=== PATIENT | male | born 1950 | race Caucasian/White ===

== ENCOUNTER 2021-07-24 18:21 | Inpatient (IN) | payer MEDICARE, OTHER, SELFPAY ==
[2021-07-24] VITALS (45 sets, daily range): BP systolic 123–162; BP diastolic 65–93; PULSE 44–79; RESP 10–32; TEMP 36.9; O2SAT 80–96
--- NOTE | 2021-07-24 | DI.CT_ITS ---
Exam(s) CT CHEST PE CTA EXAM: CT CHEST PE CTA CLINICAL HISTORY: Chest pain, PETTIT; previous pulmonary emboli. TECHNIQUE: Imaging Protocol: CT angiography of the chest was performed using pulmonary embolus farida col. Multi planar reconstructions were performed. CONTRAST MATERIAL: Intravenous: Omnipaque 350 Contrast volume: 100 cc COMPARISON: No exams were available for comparison FINDINGS: CHEST: PULMONARY ARTERIES: There is less than optimal opacification of distal pulmonary arteries. There are no central pulmonary emboli. Difficult to adequately evaluate the distal-most vessels of the pulmon sho artery tree. LUNGS: There are no confluent infiltrates nor pleural effusions.. However, there is a 4 millimeter n odule adjacent to the major fissure on the right side (series 4/image 25) similar size nodule is note d in the left lung adjacent to the major fissure. Benign-appearing increased markings are noted in t he posterior basal segment of the left lower lobe MEDIASTINUM: There is no hilar nor mediastinal adenopathy. Visualized thyroid unremarkable. CARDIAC: Heart size is upper normal. There is no pericardial effusion.Caliber of the thoracic aorta is within normal limits. Coronary artery calcification-moderate there is no significant shift of the interventricular septum. PARTIALLY VISUALIZED UPPERMOST ABDOMEN: Spleen is surgically absent. No adrenal masses. OSSEOUS: No significant osseous lesions.. IMPRESSION: 1. No central pulmonary emboli evident.. Difficult to evaluate the peripheral pulmonary arteries on this study. Cannot exclude peripheral emboli. No evidence of pulmonary infarction nor prominent rig ht heart strain. Coronary artery calcification noted. 2. Noncalcified nodules both lungs measuring 4-[address] scan in 3-6 months . Also comparison to any prior outside CT scans. 3. Absent spleen RADIATION DOSE DELIVERED: 698.81mGy.cm Total DLP DATA REPOSITORY: All CT scans at this facility are submitted to the National Radiology Data Registry (NRDR) Dose Index Registry (DIR) with the [employer] (ACR). RADIATION OPTIMIZATION: All CT scans at this facility use at least one of these dose optimization te chniques: automated exposure control; mA and/or kV adjustment per patient size (includes targeted exa ms where dose is matched to clinical indication); or iterative reconstruction.
[2021-07-24] MEDS: nitroGLYcerin in D5W 50 MG/250 ML BTL IV (19:28)
--- NOTE | 2021-07-24 20:01 | W.PM.HP.N ---
Date of service: 07/24/21 Time of Service: 20:02 Assessment and Plan Assessment and plan (1) Chest pain, rule out acute myocardial infarction: Status: Acute Assessment and plan: Symptoms for 1 month that have escalated. Initial troponin levels x2 were normal; 3rd elevated. Labs were at [facility]. They utilized a Troponin-I test. Repeat troponin now. Chest pain 1/10 currently on nitro drip. Continue. Cont Heparin drip. Given ASA and Plavix at presenting OSH ED; continue. He has been accepted at [facility] but cannot be transferred until there is an available bed. He endorses cardiac stress testing (treadmill) 3-4 months ago that was negative. He has had previous cardiac stress testing, including nuc med testing that were all negative (per pt). Concerned about potential recurrence of a pulmonary embolism. He is on Xarelto. Initial P.E./DVT was after a total knee arthroplasty. He was prescribed coumadin. He then had a recurrence of pulmonary emboli 2 years later while on coumadin and started on Xarelto at that time. CTA chest; P.E. protocol ordered. He is currently heparinized. (2) Diabetes mellitus: Status: Chronic Assessment and plan: Not on diabetic medications. Controlled carb diet. Will ordered glucose monitoring and SS correction insulin dosing. (3) Hyperlipidemia: Status: Acute Assessment and plan: Cont Rosuvastatin 5mg. (4) Morbid obesity: Status: Acute Assessment and plan: An added risk factor for CAD. He lost 100# previously. (5) Obstructive sleep apnea of adult: Status: Acute Assessment and plan: Intolerant of CPAP masks but has only been offered one type he reports. He does use 3L supplemental O2 at night. (6) COPD (chronic obstructive pulmonary disease): Status: Chronic Assessment and plan: Cont Dulera (or therapeutic sub.), Spiriva and prn xopenex. O2 saturation monitoring. (7) Pulmonary embolism: Status: Chronic Assessment and plan: H/O DVT with pulmonary embolism following knee replacement and then a subsequent recurrence while on coumadin 2 years later. Now on Xarelto which is being held while on heparin drip for concerns of ACS. CTA chest ordered. (8) History of ITP: Status: Acute Assessment and plan: Platelets 298 He is post-speenectomy. He current on meningococcal vaccine (2015), pneumococcal conjugate PCV 13 (2015), PPV23 (2000, 2015), Zoster live vaccine (2012). (9) BPH (benign prostatic hyperplasia): Status: Chronic Assessment and plan: On dutasteride. History of Present Illness History of Present Illness Chief Complaint: Chest pain and dyspnea on exertion Narrative: This is a 70 yo male with a PMH of DVT/pulmonary emboli (2 occurences), DM2, HLD, ITP, dpressive disorder, GRISELDA;not using CPAP, Asthma/COPD, BPH, Chronic low back pain. He present to [facility] with c/o upper chest discomfort intermittently for 1 month. Intensity at time of presentation described as 8/10 with onset of the episode of CP 3 hours prior to presentation. He had received some mild relief with TUMS at home. He describes a cough, increasing PETTIT. He uses 3L supplemental O2 per NC on an as needed basis; mostly at night. No palpitations, fever/chills. No abd pain, acid brash, diarrhea. No increased CP with cough or deep breath. He takes an 81mg aspirin daily and is on a BB and a statin (low dose). In the ED he received a dose of IV PPI and a GI cocktail that lessened his pain. His initial 2 Troponin-I values were negative; the 3rd was elevated. No ST elevation/abnormalities or T wave findings on EKG; +RBBB. He was administered SL nitroglycerin with good pain relief down to a 1-2/10. A nitro drip and a heparin drip were initiated. No bed availability at [facility], [facility] or [facility] per ED physician (Darin Smiley) at [facility]. [facility] did accept him for admission but it likely would not be until the next day. He is s/p Moderna Covid vaccine x 2 doses. Review of Systems All systems reviewed & are unremarkable except as noted in HPI and below PFSH Active Problem List (Updated 07/24/21 @ 21:58 by Carla Wood) Chest pain, rule out acute myocardial infarction (Acute) Diabetes mellitus (Chronic) Hyperlipidemia (Acute) Morbid obesity (Acute) Obstructive sleep apnea of adult (Acute) COPD (chronic obstructive pulmonary disease) (Chronic) Pulmonary embolism (Chronic) History of ITP (Acute) BPH (benign prostatic hyperplasia) (Chronic) Medical History (Updated 07/24/21 @ 21:58 by Carla Wood) Abrasion of foot Acute pulmonary embolism Allergic rhinitis Asthma Cholelithiasis without obstruction Chronic low back pain Chronic obstructive lung disease Constipation Depressive disorder Dermatophytosis Disorder of skin and subcutaneous tissue Edema History of urinary stone Hyperplasia of prostate Idiopathic thrombocytopenia purpura Joint pain residential (current) use of anticoagulants Mild major depression Mixed hyperlipidemia Non-toxic multinodular goiter Non-toxic uninodular goiter Pain in joint of left elbow Pneumonia Testicular hypofunction Thyroid function test abnormal Type 2 diabetes mellitus Verruca vulgaris Surgical History (Updated 07/24/21 @ 21:58 by Carla Wood) Artificial knee joint present Social History Smoking risk assessment performed?: No Meds Allergies and Home Medications Allergies Allergy/AdvReac Type Severity Reaction Status Date / Time insect venom Allergy Unverified 07/24/21 20:16 penicillin V Allergy Unverified 07/24/21 20:16 Home Medications Medication Instructions Recorded Confirmed Type allopurinol 100 mg PO DAILY 07/24/21 07/24/21 History ascorbic acid (vitamin C) [Vitamin 1 g PO DAILY 07/24/21 07/24/21 History C] benzonatate 200 mg PO TID 07/24/21 07/24/21 History dextromethorphan-guaifenesin 1 tab PO Q12H PRN 07/24/21 07/24/21 History [Mucinex DM] dutasteride 0.5 mg PO QPM 07/24/21 07/24/21 History furosemide 40 mg PO BID 07/24/21 07/24/21 History levalbuterol tartrate [Xopenex HFA] 2 inh INHALATION Q6H PRN 07/24/21 07/24/21 History metoprolol succinate 12.5 mg PO DAILY 07/24/21 07/24/21 History mometasone-formoterol [Dulera] 2 puff INHALATION Q12H 07/24/21 07/24/21 History multivitamin 1 tab PO DAILY 07/24/21 07/24/21 History mupirocin 1 applic TOPICAL PRN PRN 07/24/21 07/24/21 History nystatin 5 ml PO QID PRN 07/24/21 07/24/21 History oxygen-air delivery systems 07/24/21 07/24/21 History rivaroxaban [Xarelto] 20 mg PO DAILY 07/24/21 07/24/21 History rosuvastatin 5 mg PO DAILY 07/24/21 07/24/21 History sertraline 150 mg PO DAILY 07/24/21 07/24/21 History tiotropium bromide [Spiriva 1 puff INHALATION BID 07/24/21 07/24/21 History Respimat] Exam Const General: cooperative, no acute distress and not ill appearing Nutritional Appearance: obese Orientation: alert and oriented x3 HENMT Head: normal to inspection and normocephalic Ears: hearing grossly normal bilaterally Neck Neck: full ROM and no JVD Chest Chest: no tenderness Resp Effort & Inspection: normal respiratory effort Auscultation: clear to auscultation bilaterally Cardio Rate: regular rate Rhythm: regular rhythm Heart Sounds: S1 normal, S2 normal and other (Distant heart sounds) GI Inspection: obesity Palpation: soft and nontender Auscultation: normal bowel sounds Skin General skin exam: no rashes or lesions noted Neuro General: no focal motor deficits Cranial Nerves: facial strength normal Cognition: normal cognition Speech: speech normal Extrem General: no calf tenderness and edema Laterality: bilateral (2+) Psych Mental Status: mental status grossly normal Speech and Movement: speech and movement normal Affect: normal affect Results Labs Result diagrams: 07/25/21 05:35 07/25/21 05:35 Last Vital Signs Temp 36.9 C 07/24/21 19:30 Pulse 57 L 07/24/21 19:30 Resp 19 07/24/21 19:30 Pulse Ox 94 07/24/21 19:30
[2021-07-24 20:52] LABS: Troponin I 3.55 ng/mL (<0.06)
[2021-07-24] MEDS: Normal Saline - Diluent 50 ML VIAL IV (20:56)
[2021-07-24] MEDS: Omnipaque 350 MG/ML 100 ML BTL IJ (20:56)
[2021-07-24] MEDS: Normal Saline Flush 10 ML SYR (20:56)
[2021-07-24 21:13] LABS: NT-proBNP 318 pg/mL (<300)
--- NOTE | 2021-07-24 22:54 | DI.VRAD_ITS ---
PROCEDURE INFORMATION: Exam: CTA Chest With Contrast Exam date and time: 07/24/2021 8:03 PM Age: 70 years old Clinical indication: Other: Chest pain, toussaint; Previous pulmonary emboli TECHNIQUE: Imaging protocol: Computed tomographic angiography of the chest with contrast. 3D rendering (Not supervised by radiologist): MIP and/or 3D reconstructed images were created by the technologist. Total images: 2051 COMPARISON: No relevant prior studies available. FINDINGS: Pulmonary arteries: No large central pulmonary emboli are identified. Small peripheral pulmonary emboli are identified in the bilateral upper and lower lobes. Thrombus burden is small. There is mild dilatation of the central pulmonary arteries bilaterally suggesting an element of pulmonary arterial hypertension. No significant changes of right ventricular strain, RV to LV ratio 0.9. Aorta: Moderate aortic ectasia/tortuosity. No mediastinal hematoma. Thyroid: The visualized thyroid gland demonstrates no gross abnormality. Lungs: No acute tracheobronchial abnormalities. No gross pulmonary infiltrates or edema pattern. Patchy atelectasis or scarring in the lung bases. Pleural spaces: 6.5 mm juxtapleural nodule in the left lower lobe adjacent to the major fissure on series 6, image 271. Small juxtapleural nodules in the anterolateral left upper lobe measuring 4 mm a piece on images 238 and 247. For patients at low risk (minimal or absent history of smoking and of other known risk factors), recommend CT at 3-6 months, then consider CT at 18-24 months. For patients at high risk (history of smoking or of other known risk factors), recommend CT at 3-6 months, then CT at 18-24 months. (Anirudh et al., Fleischner Society, 2017). No pleural effusion. No pneumothorax. Heart: Heart size normal. Moderate coronary artery calcification. No pericardial effusion. Mediastinal space: The esophagus is largely contracted but demonstrates no gross abnormality. Lymph nodes: No supraclavicular or axillary adenopathy. No mediastinal adenopathy. Mildly enlarged right hilar node, nonspecific. Pancreas: Moderate pancreatic atrophy without acute abnormality. No pancreatic ductal dilatation. Spleen: Splenectomy. Kidneys and ureters: Mild left renal cortical scarring. Bones/joints: No acute osseous abnormalities are identified. Osteopenia and moderate thoracic spondylosis. Soft tissues: The soft tissues of the chest wall demonstrate no acute abnormality. IMPRESSION: 1. Small bilateral peripheral pulmonary emboli are identified. No large central emboli. Thrombus burden is small. There are mild changes of pulmonary arterial hypertension but no evidence of right ventricular strain. 2. Mildly enlarged right hilar lymph node, nonspecific. 3. Moderate coronary artery calcification. 4. Small noncalcified pulmonary nodules in the left lung measuring up to 6.5 mm. Please see follow-up recommendations above. 5. Additional nonemergent findings detailed above. 6. These findings initiated a critical results reporting process. An addendum will be issued at the time of clinician notification. Dictated and Authenticated by: Robert Augustin MD. Ordering:SUSANA Barbosa MD
--- NOTE | 2021-07-24 23:54 | DI.VRAD_ITS ---
Addendum created by Robert Augustin MD on 07/24/2021 11:53:21 PM EST: Addendum: THIS REPORT CONTAINS FINDINGS THAT MAY BE CRITICAL TO PATIENT CARE. The findings were verbally communicated via telephone conference with Familia Valles at 11:53 PM EST on 07/24/2021. The findings were acknowledged and understood. Initial report created on 07/24/2021 10:53:54 PM EST: PROCEDURE INFORMATION: Exam: CTA Chest With Contrast Exam date and time: 07/24/2021 8:03 PM Age: 70 years old Clinical indication: Other: Chest pain, toussaint; Previous pulmonary emboli TECHNIQUE: Imaging protocol: Computed tomographic angiography of the chest with contrast. 3D rendering (Not supervised by radiologist): MIP and/or 3D reconstructed images were created by the technologist. Total images: 2051 COMPARISON: No relevant prior studies available. FINDINGS: Pulmonary arteries: No large central pulmonary emboli are identified. Small peripheral pulmonary emboli are identified in the bilateral upper and lower lobes. Thrombus burden is small. There is mild dilatation of the central pulmonary arteries bilaterally suggesting an element of pulmonary arterial hypertension. No significant changes of right ventricular strain, RV to LV ratio 0.9. Aorta: Moderate aortic ectasia/tortuosity. No mediastinal hematoma. Thyroid: The visualized thyroid gland demonstrates no gross abnormality. Lungs: No acute tracheobronchial abnormalities. No gross pulmonary infiltrates or edema pattern. Patchy atelectasis or scarring in the lung bases. Pleural spaces: 6.5 mm juxtapleural nodule in the left lower lobe adjacent to the major fissure on series 6, image 271. Small juxtapleural nodules in the anterolateral left upper lobe measuring 4 mm a piece on images 238 and 247. For patients at low risk (minimal or absent history of smoking and of other known risk factors), recommend CT at 3-6 months, then consider CT at 18-24 months. For patients at high risk (history of smoking or of other known risk factors), recommend CT at 3-6 months, then CT at 18-24 months. (Anirudh et al., Fleischner Society, 2017). No pleural effusion. No pneumothorax. Heart: Heart size normal. Moderate coronary artery calcification. No pericardial effusion. Mediastinal space: The esophagus is largely contracted but demonstrates no gross abnormality. Lymph nodes: No supraclavicular or axillary adenopathy. No mediastinal adenopathy. Mildly enlarged right hilar node, nonspecific. Pancreas: Moderate pancreatic atrophy without acute abnormality. No pancreatic ductal dilatation. Spleen: Splenectomy. Kidneys and ureters: Mild left renal cortical scarring. Bones/joints: No acute osseous abnormalities are identified. Osteopenia and moderate thoracic spondylosis. Soft tissues: The soft tissues of the chest wall demonstrate no acute abnormality. IMPRESSION: 1. Small bilateral peripheral pulmonary emboli are identified. No large central emboli. Thrombus burden is small. There are mild changes of pulmonary arterial hypertension but no evidence of right ventricular strain. 2. Mildly enlarged right hilar lymph node, nonspecific. 3. Moderate coronary artery calcification. 4. Small noncalcified pulmonary nodules in the left lung measuring up to 6.5 mm. Please see follow-up recommendations above. 5. Additional nonemergent findings detailed above. 6. These findings initiated a critical results reporting process. An addendum will be issued at the time of clinician notification. Dictated and Authenticated by: Robert Augustin MD. Ordering:SUSANA Barbosa MD
[2021-07-24 23:55] LABS: Troponin I 5.84 ng/mL (<0.06)
[2021-07-25] VITALS (82 sets, daily range): BP systolic 101–137; BP diastolic 52–86; PULSE 43–69; RESP 13–21; TEMP 36.5–36.8; O2SAT 89–96
--- NOTE | 2021-07-25 | DI.US_ITS ---
APPROVED REPORT EXAM: Comprehensive 2D, Doppler, and color-flow Echocardiogram Patient Location: In-Patient Room/Bed: IIZ078 Inside Channel Account Manager: Mckenzie Dowd RDCS (AE) Indications: s/p new NSTEMI Other Information Study Quality: Fair. Technically limited study due to body habitus, inability to position patient. Conclusion Normal left ventricular wall thickness and chamber size. Estimated ejection fraction is 60%. There were no apparent wall motion abnormalities Grossly normal right ventricular size and function Both atria are normal in size The aortic valve is trileaflet and sclerotic without stenosis or regurgitation Mildly thickened mitral leaflets with trace regurgitation Normal tricuspid valve with trace regurgitation. Estimated right ventricular systolic pressure was 2 5 mmHg Dilated ascending aorta measuring 4.04 cm Wall motion Left Ventricle The left ventricle is normal size. The left ventricular systolic function is normal. The left ventric ular ejection fraction is within the normal range. There is normal left ventricular wall thickness. T here is normal LV segmental wall motion. There is no ventricular septal defect visualized. LVEF is 60 %. Right Ventricle Right ventricle is grossly normal in size. Right ventricular systolic function is grossly normal. The RVSP is 25.0mmHg. Atria The left atrium size is normal. The right atrium size is normal. The interatrial septum is intact wit h no evidence for an atrial septal defect. Aortic Valve The Aortic valve is sclerotic. Aortic valve is trileaflet. There is no aortic valvular stenosis. No a ortic regurgitation is present. Mitral Valve Mitral valve leaflets are mildly thickened. No evidence of mitral valve stenosis. Trace mitral regurg itation. Tricuspid Valve The tricuspid valve is normal in structure. There is no tricuspid valve stenosis. Trace tricuspid reg urgitation. Pulmonic Valve The pulmonary valve is normal in structure. There is no pulmonic valvular stenosis. Trivial pulmonic regurgitation. Great Vessels The aortic root is normal in size. The ascending aorta is moderately dilated.4.04 cm Aortic arch is n ot well visualized. IVC is normal in size and collapses >50% with inspiration. Pericardium There is no pericardial effusion. 2D Dimensions IVSD d PLAX 1.04 cm M: 0.6-1.2 LV Vol A2C d MOD 215.0 mL LVPW d PLAX 1.04 cm M: 0.6 - 1.2 LV Vol A4C d MOD 190.7 mL LVID d PLAX 5.75 cm M: 4.2 - 5.8 LA vol/ BSA A4C s A-L 46.5 mL/m2 LVDs 4.00 cm M: 2.5 - 4.0 LA Area A4C s MOD 31.82 cm2 Ao Root d 3.14 cm M: 3.1 - 3.7 LV EF A4C MOD 56.9 % RA Area A4C 17.66 cm2 LV EF A2C MOD 57.4 % RA Vol/ BSA A4C s A-L 19.8 mL/m2 LV EF Biplane MOD 56.7 % Ao Asc Diam d 4.04 cm M: 2.6 - 3.4 SV 115.25 mL LV EF Teichholz 56.9 % SV Index 44.17 mL/m2 LVEF (Wood's) 56.73 % M: 52 - 72 LV Volume 140.52 mL M: 62 - 150 LV Volume Index 53.83 mL/m2 M: 34 - 74 LV Vol Biplane MOD 203.2 mL FS 30.25 % M-Mode TAPSE 2.23 cm (M/F) >1.7 LV Diastology MV E' medial 0.108 (>0.07 m/s) E/A Ratio 1.0 LV E/e MED 5.45 (<14) MV E Vmax 0.59 (0.4-1.3 m/s) MV E' lateral 0.081 (>0.1 m/s) MV A Vmax 0.60 (0.4-1.3 m/s) LV E/e LAT 7.25 (<14) MV E/A Ratio 0.98 MV E/E' medial 5.48 MV E/E' lateral 7.26 Aortic Valve LVOT Area 3.18 cm2 AoV Area Vmax 1.80 cm2 LVOT Vmax 0.94 m/s AoV Area/ BSA (Vmax) 0.69 cm2/m2 LVOT Mean Jordon. 0.55 m/s MASSIMO Mean Jordon. 1.39 cm2 LVOT Peak Grad 3.5 mmHg MASSIMO Mean Jordon. Index 0.53 cm2/m2 LVOT Mean Grad 1.5 mmHg LVOT VTI 0.218 m LVOT Diam s 2.00 cm AoV Vmax 1.66 m/s Velocity Ratio 0.56 AoV Mean Jordon. 1.26 m/s AoV Peak Grad 11.0 mmHg LVOT SV 69.36 mL AoV Mean Grad 6.9 mmHg AoV VTI 0.366 m AoV Area VTI 1.89 cm2 AoV Area/ BSA (VTI) 0.73 cm/m2 Mitral Valve MV DT 276 (160-240 msec) MV PHT 80 msec MV Area PHT 2.75 cm2 MV VTI 0.295 m MV Area VTI 2.35 (4.0-6.0 cm2) Pulmonary Valve PV Vmax 1.02 (0.5-1.5 m/s) RVOT Peak Gr. 2.15 mmHg PV Peak Grad 4.2 mmHg RVOT Mean Gr. 0.85 mmHg PV Mean Grad 2.4 mmHg RVOT VTI 0.155 m PV VTI 0.194 m RVOT Vmax 0.73 m/s Tricuspid Valve TR Peak Grad 22.0 mmHg TR Vmax 2.35 m/s RA Pressure 3.00 mmHg RVSP (TR) 25.0 mmHg
[2021-07-25] MEDS: Furosemide 40 MG TAB PO ×2 (00:41→08:24)
--- NOTE | 2021-07-25 05:45 | RT.EKG_ITS ---
APPROVED REPORT Exam: Resting ECG Reason for Exam: NSTEMI Patient Location: I HR:58 bpm ECG Measurements Heart Rate 58 AXIS TX 180 P 31 QRSd 160 QRS -46 QT 474 T -11 QTc 468 Conclusion Sinus bradycardia...rate< 60 RBBB and LAFB...QRSd >120mS, axis(-40,240) Probable left ventricular hypertrophy...(RaVL+SV3)xQRSd >280
--- NOTE | 2021-07-25 06:54 | NUR.NOTE ---
EKG donme as ordered.
[2021-07-25 07:10] LABS: Abs Immature Grans 0.05 10^3/uL (0.0-0.06); Absolute Basophil Count 0.04 10^3/uL (0.0-0.2); Absolute Eosinophil Count 0.37 10^3/uL (0.0-0.7); Absolute Lymphocyte Count 2.24 10^3/uL (1.2-3.4); Absolute Monocyte Count 1.01 10^3/uL (0.1-0.8); Absolute Neutrophil Count 6.26 10^3/uL (1.2-6.7); Basophils % 0.4; Eosinophils % 3.7; HCT 40.9 % (40.0-50.0); HGB 13.2 g/dL (13.5-17.5); Immature Grans % 0.5; Lymphocytes % 22.5; MCH 29.5 pg (27.0-33.0); MCHC 32.3 % (32.0-36.0); MCV 91.3 fL (80-95); MPV 10.6 fL (8.0-11.0); Monocytes % 10.1; Neutrophils % 62.8; Nucleated RBC 0 %; Platelet Count 291 10^3/uL (130-400); RBC 4.48 10^6/uL (4.36-5.78); RDW 15.2 % (11.8-14.1); RDW-SD 50.4 fL; WBC 9.97 10^3/uL (4.4-10.8)
[2021-07-25 07:33] LABS: PTT Activated 46.1 sec (21.0-27.5)
[2021-07-25 07:34] LABS: ALT 22 U/L (16-63); AST 37 U/L (15-37); Albumin 2.9 g/dL (3.4-5.0); Alkaline Phosphatase 83 U/L (46-116); Anion Gap 7.1 mmol/L (3-11); BUN 19 mg/dL (7-18); Bilirubin, Total 0.6 mg/dL (0.2-1.0); CO2 29.9 mmol/L (21.0-32.0); Calcium 9.6 mg/dL (8.5-10.1); Chloride 109 mmol/L (98-107); Glucose 149 mg/dL (74-106); Magnesium 2.1 mg/dL (1.8-2.4); Potassium 4.1 mmol/L (3.5-5.1); Sodium 146 mmol/L (136-145); Total Protein 6.6 g/dL (6.4-8.2)
[2021-07-25 07:38] LABS: Troponin I 8.22 ng/mL (<0.06)
--- NOTE | 2021-07-25 08:20 | INITIAL_ITS ---
- If Service Date Differs Date of service: 07/25/21 Time of Service: 08:20 Care Management Initial Assess REASON FOR HOSPITALIZATION:: chest pain, PE PAST MEDICAL HISTORY/PAST SURGICAL HISTORY:: Active Problem List (Updated 07/24/21 @ 21:58 by Carla Wood). Chest pain, rule out acute myocardial infarction (Acute). Diabetes mellitus (Chronic). Hyperlipidemia (Acute). Morbid obesity (Acute). Obstructive sleep apnea of adult (Acute). COPD (chronic obstructive pulmonary disease) (Chronic). Pulmonary embolism (Chronic). History of ITP (Acute). BPH (benign prostatic hyperplasia) (Chronic). Medical History (Updated 07/24/21 @ 21:58 by Carla Wood). Abrasion of foot. Acute pulmonary embolism. Allergic rhinitis. Asthma. Cholelithiasis without obstruction. Chronic low back pain. Chronic obstructive lung disease. Constipation. Depressive disorder. Dermatophytosis. Disorder of skin and subcutaneous tissue. Edema. History of urinary stone. Hyperplasia of prostate. Idiopathic thrombocytopenia purpura. Joint pain. parts counterman (current) use of anticoagulants. Mild major depression. Mixed hyperlipidemia. Non-toxic multinodular goiter. Non-toxic uninodular goiter. Pain in joint of left elbow. Pneumonia. Testicular hypofunction. Thyroid function test abnormal. Type 2 diabetes mellitus. Verruca vulgaris. Surgical History (Updated 07/24/21 @ 21:58 by Carla Wood). Artificial knee joint present PREVIOUS FUNCTIONAL STATUS/SOCIAL/FAMILY SUPPORTS:: Dipesh lives in a single family home in [place], [place] with his Karina. They have 2 children - a son and a daughter and 8 grandchildren. Dipesh and Karina also have 5 great grandchildren. All of his family lives in the area and he descibes them as close and supportive. Dipesh uses a cane for ambulation as he had his ankle replaced fairly recently. He receives no community services and is independent at baseline. 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 CURRENT FUNCTIONAL STATUS:: Dipesh was sitting up in bed when CM met with him. He was pleasant and engaged easily with CM. Dipesh denied having chest pain at this time and his vital signs appeared stable. When he was first admitted he was hypertensive but his blood pressures have been in the 120's systolic all morning. Per provider, Dipesh has been accepted in transfer to [facility]; he is waiting for a bed. ADVANCE DIRECTIVES:: none on file and is not interested Has patient been provided with info about the portal/API?: Yes Did the patient sign up for the portal?: No CODE STATUS:: Full Code INSURANCE COVERAGE / FINANCIAL ISSUES:: Medicare. [employer] CURRENT HOME/COMMUNITY SERVICES/EQUIPMENT:: Dipesh uses a cane PRIMARY CARE PHYSICIAN:: Darin Sla POTENTIAL DISCHARGE NEEDS:: Follow up with PCP and plan of care PATIENT/FAMILY EDUCATION NEEDS:: When ready for discharge educational needs will include a review of discharge instructions,activity, medications, limitations, follow up plan, Ask Me Three ANTICIPATED BARRIERS TO DISCHARGE:: waiting for a bed at [facility] TRANSPORTATION:: via private vehicle with PLAN:: Dipesh will likely be transferred to [facility] as soon as a bed becomes available. He will transport via EMS coordinated by nursing supervisor cab.
[2021-07-25] MEDS: Multivitamin TAB 1 TAB PO (08:23)
[2021-07-25] MEDS: Aspirin 81 MG CHEW PO (08:23)
[2021-07-25] MEDS: Clopidogrel 75 MG TAB PO (08:23)
[2021-07-25] MEDS: Ascorbic Acid 500 MG TAB 1000 MG PO (08:23)
[2021-07-25] MEDS: Allopurinol 100 MG TAB PO (08:23)
[2021-07-25] MEDS: Sertraline 50 MG TAB 150 MG PO (08:24)
[2021-07-25] MEDS: Rosuvastatin 5 MG TAB PO (08:24)
[2021-07-25] MEDS: Metoprolol CR 25 MG TABCR 12.5 MG PO (08:24)
[2021-07-25] MEDS: Insulin Aspart 300 UNITS/3 ML PEN SC (08:40)
[2021-07-25] MEDS: Budesonide/Formoterol 160/4.5 6 GM 60 PUFF INH IH (08:51)
--- NOTE | 2021-07-25 09:50 | W.PM.PROGNOT ---
Date of Service Date of service: 07/25/21 Time of Service: 09:50 Assessment and Plan Assessment and plan (1) NSTEMI (non-ST elevated myocardial infarction): Status: Acute Assessment and plan: Patient clearly had an NSTEMI based on his elevated troponins and symptoms of chest pain which resolved with nitroglycerin. EKG demonstrates sinus rhythm with a right bundle branch block and left anterior fascicular block. Is unclear as to how old this is but it is unchanged from his EKGs at [facility] last night. Continue heparin dual antiplatelet therapy statin therapy as well as nitroglycerin IV. As well as his beta-aretha. Seems to have some mild congestive failure as evidenced by bilateral rales and peripheral edema. We will give him low-dose Lasix. Transfer to [facility] when bed becomes available. 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 Currently patient is being maintained on heparin drip for his NSTEMI. Qualifiers: Chronicity: chronic Acute cor pulmonale presence: without acute cor pulmonale Pulmonary embolism type: unspecified Qualified Code(s): I27.82 - Chronic pulmonary embolism (3) Diabetes mellitus: Status: Chronic Assessment and plan: Patient previously been on Lantus but due to significant weight loss of over 100 pounds which was a conscientious effort to get his weight down and control his blood sugars he has been able to get off of insulin and his A1c has been hanging around 6%. Here in the hospital monitor his blood sugars and do sliding scale coverage with NovoLog. Qualifiers: Diabetes mellitus type: type 2 Diabetes mellitus buttermaker helper insulin use: without detention use Diabetes mellitus complication status: without complication Qualified Code(s): E11.9 - Type 2 diabetes mellitus without complications (4) COPD (chronic obstructive pulmonary disease): Status: Chronic Assessment and plan: Xopenex inhalers as needed. Continue Symbicort and Spiriva Qualifiers: COPD type: unspecified COPD Qualified Code(s): J44.9 - Chronic obstructive pulmonary disease, unspecified (5) Hyperlipidemia: Status: Acute Assessment and plan: Continue Crestor Qualifiers: Hyperlipidemia type: unspecified Qualified Code(s): E78.5 - Hyperlipidemia, unspecified (6) BPH (benign prostatic hyperplasia): Status: Chronic Qualifiers: Lower urinary tract symptom presence: symptoms absent Qualified Code(s): N40.0 - Benign prostatic hyperplasia without lower urinary tract symptoms Subjective Subjective Interval history since last seen: Patient is 70 yr old male w/ PMH of DM, HTN, HLD, COPD but no prior hx of CAD nor CHF who presented to [facility] in [place] w/ acute onset of CP: chest tightnness, burning which he initially thought was heart burn but did not respond to Tums. He had his drive him over to the emergency department at [facility] where he was found to have NSTEMI. EKG demonstrated sinus bradycardia rate 53 bpm with a right bundle branch block and a left anterior fascicular block with rare PVCs. Serial EKG showed no change. He also has borderline ECG criteria for LVH. His SARS-CoV-2 swab at [facility] was negative. His initial troponin I was elevated 57.4 there are normal range goes up to 60.4 pg/mL. His repeat troponin went up to 99.9 which is well above the upper limit normal. His chest pain resolved with sublingual nitroglycerin and then he was started on nitroglycerin drip and heparin drip and was given dual antiplatelet therapy with aspirin Plavix. Because [facility] could not transfer him to tertiary care center and they did not have ICU capacity patient was transferred down to [facility] pending acceptance to a tertiary care center. This morning His troponins are still trending upward. Last night on arrival his troponin I per our labs was 3.55 ng/mL which is well above the upper limit of normal of 0.06. Repeat troponin this morning is 8.22. Patient is currently pain-free he remains on nitroglycerin drip at 10 mcg/min and a heparin drip at 1250 units/h. Patient has been accepted for transfer to [facility] pending bed availability this morning. Patient has had small amount of bleeding from his penis since has been on the heparin drip. Latest activated partial thromboplastin time is 46.1. BMP shows normal renal function with BUN of 19 creatinine 1.0 LFTs are normal electrolytes are normal. proBNP is elevated at 1276 this morning. Patient did have some chest congestion with bilateral basilar rales. He has been having increasing exertional dyspnea at home prior to admission and bilateral leg and pedal edema. Exam Narrative Exam Narrative: Morbidly obese male who is lying in bed semisolid position in no acute respiratory distress wearing oxygen. SPO2 was 90%. Heart rate 54 sinus bradycardia. BP is 125/84. Neck is obese difficult to discern a JVD Lungs with bibasilar rales and some end expiratory wheezes no rhonchi Heart is regular bradycardic no appreciable murmur rub or gallop. Abdomen is obese soft nontender Lower legs with 2+ pitting edema of his feet ankles and pretibial surfaces up to his knees. Objective Last Vital Signs Temp 36.5 C 07/25/21 04:35 Pulse 48 L 07/25/21 09:01 Resp 17 07/25/21 09:01 BP 120/78 07/25/21 09:01 Pulse Ox 93 07/25/21 09:01 Laboratory Results - last 24 hr 07/24/21 07/24/21 07/24/21 20:15 20:15 23:20 WBC RBC Hgb Hct MCV MCH MCHC RDW Plt Count MPV Immature Gran % Neutrophils % Lymphocytes % Monocytes % Eosinophils % Basophils % Nucleated RBC % Absolute Neutrophils Absolute Lymphocytes Absolute Monocytes Absolute Eosinophils Absolute Basophils APTT 33.0 H Sodium Potassium Chloride Carbon Dioxide Anion Gap BUN Creatinine Estimated GFR/1.73 m2 Glucose Calcium Magnesium Total Bilirubin AST ALT Alkaline Phosphatase Troponin I 3.55 H* NT-Pro-B Natriuret Pep 318 H Total Protein Albumin 07/24/21 07/25/21 07/25/21 23:20 06:20 06:20 WBC RBC Hgb Hct MCV MCH MCHC RDW Plt Count MPV Immature Gran % Neutrophils % Lymphocytes % Monocytes % Eosinophils % Basophils % Nucleated RBC % Absolute Neutrophils Absolute Lymphocytes Absolute Monocytes Absolute Eosinophils Absolute Basophils APTT Sodium 146 H Potassium 4.1 Chloride 109 H Carbon Dioxide 29.9 Anion Gap 7.1 BUN 19 H Creatinine 1.0 Estimated GFR/1.73 m2 >= 60.00 Glucose 149 H Calcium 9.6 Magnesium 2.1 Total Bilirubin 0.6 AST 37 ALT 22 Alkaline Phosphatase 83 Troponin I 5.84 H* 8.22 H* NT-Pro-B Natriuret Pep Total Protein 6.6 Albumin 2.9 L 07/25/21 07/25/21 06:20 06:20 WBC 9.97 RBC 4.48 Hgb 13.2 L Hct 40.9 MCV 91.3 MCH 29.5 MCHC 32.3 RDW 15.2 H Plt Count 291 MPV 10.6 Immature Gran % 0.5 Neutrophils % 62.8 Lymphocytes % 22.5 Monocytes % 10.1 Eosinophils % 3.7 Basophils % 0.4 Nucleated RBC % 0 Absolute Neutrophils 6.26 Absolute Lymphocytes 2.24 Absolute Monocytes 1.01 H Absolute Eosinophils 0.37 Absolute Basophils 0.04 APTT 46.1 H D Sodium Potassium Chloride Carbon Dioxide Anion Gap BUN Creatinine Estimated GFR/1.73 m2 Glucose Calcium Magnesium Total Bilirubin AST ALT Alkaline Phosphatase Troponin I NT-Pro-B Natriuret Pep Total Protein Albumin Reviewed Pertinent PMH: Yes Objective Narrative Objective Narrative: Krhuk-ff-ifox ultrasound of his heart was performed. LV function appears grossly normal on parasternal long and short axis view images with endpoint septal separation of 8 mm. Wood biplane ejection fraction however was 44% which is mildly impaired. However this calculation is probably not accurate as I could not get good endocardial definition in both the apical two chamber view. I did not see any regional wall motion abnormalities on the parasternal short axis and long axis view. A formal echocardiogram will be performed.
[2021-07-25] MEDS: Tiotropium Bromide-Respimat 10 PUFF INH IH (10:02)
[2021-07-25 10:54] LABS: NT-proBNP 1272 pg/mL (<300)
[2021-07-25 11:00] LABS: Troponin I 7.47 ng/mL (<0.06)
[2021-07-25] MEDS: Furosemide 20 MG/2 ML VIAL IVP (11:09)
[2021-07-25] MEDS: Normal Saline Flush 10 ML SYR (11:10)
--- NOTE | 2021-07-25 16:09 | W.PM.DS.N ---
DS: Diagnosis Discharge Diagnosis (1) NSTEMI (non-ST elevated myocardial infarction): Status: Acute Asessment and Plan: Patient sustained non-ST elevation myocardial infarction was treated with heparin drip, nitroglycerin drip, dual antiplatelet therapy and remained pain-free throughout his hospital stay at [facility]. He had some mild congestive failure and was treated with IV Lasix. Patient was transferred [facility] for further tertiary care including cardiology consultation and cardiac catheterization for possible PCI (2) Pulmonary embolism: Status: Chronic Asessment and Plan: Chronically anticoagulated with Xarelto. CT of the chest performed on admission [facility] showed no central pulmonary emboli. Radiologist could not discern whether there was evidence for small peripheral emboli. (3) Diabetes mellitus: Status: Chronic (4) COPD (chronic obstructive pulmonary disease): Status: Chronic (5) Hyperlipidemia: Status: Acute (6) BPH (benign prostatic hyperplasia): Status: Chronic (7) Lung nodules: Status: Acute Asessment and Plan: Bilateral pulmonary nodules measuring 4 mm in size needs repeat follow-up CT scan in 3 to 6 months to assess stability Discharge Plan Disposition Patient Disposition: [facility] Condition: Serious Discharge Details Reason For Visit: NSTEMI Admit Date/Time: 07/24/21 18:21 Admit Provider: Familia Valles Attending Provider: Familia Valles Primary Care Provider: Darin Sal Hospital Course Hospital Course: See admission H&P for details. In summary this 70-year-old white male with a history of pulmonary emboli is chronically anticoagulated with Xarelto and has a history of hyperlipidemia hypertension COPD developed new onset chest pain at rest. He presented to the emergency department at [facility] in [facility] where he was diagnosed with an NSTEMI. EKG showed right bundle branch block with left anterior fascicular block. His troponin I level was elevated 57.4 with a normal range the goes up to 60.4 pg/mL. Second set of troponin at [facility] was elevated at 99.9. Patient was treated with sublingual nitroglycerin which resolved his chest pain. He was started on dual antiplatelet therapy with aspirin Plavix. [facility] had no capacity for ICU beds and there were no tertiary care centers available to accept the patient he was transferred to [facility] to the intensive care unit. He was sent on a heparin and nitroglycerin drip and was pain-free. His SARS-CoV-2 swab at [facility] was negative. Troponin levels were monitored here at [facility] initially was 3.55 ng/mL which is well above the upper limit normal of 0.06. Later this vivi to 5.84 on the morning of transfer to [facility] it was 8.22 and 7.47. His proBNP was elevated at 1272. Patient was given Lasix with good diuresis. Patient remained free of any chest pain throughout the rest of his hospitalization at [facility]. Imaging includes CT scan of his chest which showed no central pulmonary emboli there was no evidence of right heart strain and no pulmonary infarct of the radiologist it was difficult to evaluate for peripheral emboli. He has some noncalcified nodules in both lungs measuring 4 to 5 mm for which repeat CT scan of the chest in 3 to 6 months is recommended. 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 Echocardiogram was performed showed normal left ventricular wall thickness and size with an estimate ejection fraction of 60% with no wall motion abnormalities. Right ventricular size and function was grossly normal. There is a dilated ascending aorta measuring 4.04 cm. He had no significant valvular heart disease. Patient was transferred to [facility] in the afternoon of 07/25/2021 in serious but stable condition. He remains on heparin drip and nitroglycerin drip and is pain-free Home Meds and New Rx's Prescriptions: No Action allopurinol 100 mg Tablet 100 mg PO DAILY RF: 0 multivitamin Tablet 1 tab PO DAILY RF: 0 furosemide 40 mg Tablet 40 mg PO BID RF: 0 nystatin 100,000 unit/mL Suspension 5 ml PO QID PRN (Reason: thrush) RF: 0 ascorbic acid (vitamin C) [Vitamin C] 1,000 mg Tablet 1 g PO DAILY RF: 0 benzonatate 200 mg Capsule 200 mg PO TID RF: 0 sertraline 100 mg Tablet 150 mg PO DAILY RF: 0 dextromethorphan-guaifenesin [Mucinex DM] 60-1,200 mg Tablet Extended Release 12 Hr 1 tab PO Q12H PRN (Reason: Cough) RF: 0 mupirocin 2 % Ointment 1 applic TOPICAL PRN PRNRF: 0 metoprolol succinate 25 mg Tablet Extended Release 24 Hr 12.5 mg PO DAILY RF: 0 (DME) oxygen-air delivery systems Device MISCELLANEOUS RF: 0 dutasteride 0.5 mg Capsule 0.5 mg PO QPM RF: 0 rosuvastatin 5 mg Tablet 5 mg PO DAILY RF: 0 levalbuterol tartrate [Xopenex HFA] 45 mcg/actuation Hfa Aerosol Inhaler 2 inh INHALATION Q6H PRN (Reason: Wheezing) RF: 0 Dulera 200-5 mcg/actuation Hfa Aerosol Inhaler 2 puff INHALATION Q12H RF: 0 Xarelto 20 mg Tablet 20 mg PO DAILY RF: 0 Spiriva Respimat 2.5 mcg/actuation Mist 1 puff INHALATION BID RF: 0 Discharge Instructions Activity:: Bedrest Equipment/Supplies:: No Equipment Needed Diet:: Carb Counting Discharge Orders Discharge Orders: Discharge Order (Routine); Ordered 07/25/21 Ordered By: Tai Trejo DS: Summary Time Spent with Patient providing and/or coordinating discharge services: Less than 30 minutes Status at Discharge Functional status at discharge: independent ambulation Overall status at discharge: patient is not back to baseline Mental Status: mental status grossly normal Speech and Movement: speech and movement normal Mood: congruent mood Affect: normal affect Exam Narrative Exam Narrative: Morbidly obese male who is lying in bed semisolid position in no acute respiratory distress wearing oxygen. SPO2 was 90%. Heart rate 54 sinus bradycardia. BP is 125/84. Neck is obese difficult to discern a JVD Lungs with bibasilar rales and some end expiratory wheezes no rhonchi Heart is regular bradycardic no appreciable murmur rub or gallop. Abdomen is obese soft nontender Lower legs with 2+ pitting edema of his feet ankles and pretibial surfaces up to his knees. Psych Mental Status: mental status grossly normal Speech and Movement: speech and movement normal Mood: congruent mood Affect: normal affect DS: Data Vitals/I&O Vitals and I&O: Vital Signs Temperature 36.6 C 07/25/21 12:00 Temperature Source Temporal Artery Scan 07/25/21 12:00 Pulse 48 L 07/25/21 14:01 Pulse 50 L 07/25/21 14:01 Respiratory Rate 17 07/25/21 14:01 Respiratory Effort Non-Labored 07/25/21 14:52 Respiratory Depth Normal 07/25/21 14:52 Respiratory Pattern Normal 07/25/21 14:52 Blood Pressure 123/61 07/25/21 14:01 Blood Pressure Mean 76 07/25/21 14:01 Blood Pressure Position Supine 07/25/21 14:52 Pulse Oximetry 92 07/25/21 14:01 Oxygen Delivery Method Nasal Cannula 07/25/21 14:52 Oxygen Flow Rate 3 07/25/21 14:52 Pain Level 0 07/25/21 14:52 Intake & Output 07/24/21 07/25/21 07/25/21 23:59 11:59 23:59 Intake Total 10.8 / 56.133 242.208 / 242.208 Output Total 390 / 390 725 / 2650 1925 / 2650 Balance -379.2 / -333.867 -482.792 / -2407.792 -1925 / -2407.792 Weight 150 kg 150 kg Intake: IV 10.8 / 56.133 142.208 / 142.208 Oral 100 / 100 Output: Urine 390 / 390 725 / 2650 1925 / 2650 Other: Urine Color Light Dayna Yellow Pale Yellow Urine Appearance Clear Clear Clear Urine Odor Strong Normal Normal Comment needs assistance with urinal. Patient voids in urinal with assisstance. Patient voids in urinal with assistance. Stool Size Small Stool Characteristics Soft Voiding Methods Urinal Bedside Commode Urinal Data Completed and Pending Labs on day of discharge: Labs from last 24 hours 07/25/21 07/25/21 07/25/21 10:17 06:20 06:20 WBC 9.97 RBC 4.48 Hgb 13.2 L Hct 40.9 MCV 91.3 MCH 29.5 MCHC 32.3 RDW 15.2 H Plt Count 291 MPV 10.6 Immature Gran % 0.5 Neutrophils % 62.8 Lymphocytes % 22.5 Monocytes % 10.1 Eosinophils % 3.7 Basophils % 0.4 Nucleated RBC % 0 Absolute Neutrophils 6.26 Absolute Lymphocytes 2.24 Absolute Monocytes 1.01 H Absolute Eosinophils 0.37 Absolute Basophils 0.04 APTT 46.1 H D Sodium Potassium Chloride Carbon Dioxide Anion Gap BUN Creatinine Estimated GFR/1.73 m2 Glucose Calcium Magnesium Total Bilirubin AST ALT Alkaline Phosphatase Troponin I 7.47 H* NT-Pro-B Natriuret Pep 1272 H Total Protein Albumin 07/25/21 07/25/21 07/24/21 06:20 06:20 23:20 WBC RBC Hgb Hct MCV MCH MCHC RDW Plt Count MPV Immature Gran % Neutrophils % Lymphocytes % Monocytes % Eosinophils % Basophils % Nucleated RBC % Absolute Neutrophils Absolute Lymphocytes Absolute Monocytes Absolute Eosinophils Absolute Basophils APTT Sodium 146 H Potassium 4.1 Chloride 109 H Carbon Dioxide 29.9 Anion Gap 7.1 BUN 19 H Creatinine 1.0 Estimated GFR/1.73 m2 >= 60.00 Glucose 149 H Calcium 9.6 Magnesium 2.1 Total Bilirubin 0.6 AST 37 ALT 22 Alkaline Phosphatase 83 Troponin I 8.22 H* 5.84 H* NT-Pro-B Natriuret Pep Total Protein 6.6 Albumin 2.9 L 07/24/21 07/24/21 07/24/21 23:20 20:15 20:15 WBC RBC Hgb Hct MCV MCH MCHC RDW Plt Count MPV Immature Gran % Neutrophils % Lymphocytes % Monocytes % Eosinophils % Basophils % Nucleated RBC % Absolute Neutrophils Absolute Lymphocytes Absolute Monocytes Absolute Eosinophils Absolute Basophils APTT 33.0 H Sodium Potassium Chloride Carbon Dioxide Anion Gap BUN Creatinine Estimated GFR/1.73 m2 Glucose Calcium Magnesium Total Bilirubin AST ALT Alkaline Phosphatase Troponin I 3.55 H* NT-Pro-B Natriuret Pep 318 H Total Protein Albumin PFS Active Problem List (Updated 07/25/21 @ 16:11 by Tai Trejo) Lung nodules (Acute) NSTEMI (non-ST elevated myocardial infarction) (Acute) Diabetes mellitus (Chronic) Hyperlipidemia (Acute) Morbid obesity (Acute) Obstructive sleep apnea of adult (Acute) COPD (chronic obstructive pulmonary disease) (Chronic) Pulmonary embolism (Chronic) History of ITP (Acute) BPH (benign prostatic hyperplasia) (Chronic) Medical History (Updated 07/25/21 @ 16:11 by Tai Trejo) Abrasion of foot Acute pulmonary embolism Allergic rhinitis Asthma Cholelithiasis without obstruction Chronic low back pain Chronic obstructive lung disease Constipation Depressive disorder Dermatophytosis Disorder of skin and subcutaneous tissue Edema History of urinary stone Hyperplasia of prostate Idiopathic thrombocytopenia purpura [facility] shelter (current) use of anticoagulants Mild major depression Mixed hyperlipidemia Non-toxic multinodular goiter Non-toxic uninodular goiter Pain in joint of left elbow Pneumonia Testicular hypofunction Thyroid function test abnormal Type 2 diabetes mellitus Verruca vulgaris Surgical History (Updated 07/24/21 @ 21:58 by Nakeeta Wood) Artificial knee joint present Social History Smoking risk assessment performed?: No
== END 2021-07-25 16:30 | DRG 281 ==
PROVIDERS: Internal Medicine; Admitting Provider Family Medicine; PCP Neuromusculoskeletal Medicine & OMM; Visit Provider Family Medicine
DX: I21.4 Non-ST elevation (NSTEMI) myocardial infarction (principal); I27.82 Chronic pulmonary embolism; Z68.42 Body mass index [BMI] 45.0-49.9, adult; D69.3 Immune thrombocytopenic purpura; Z79.01 Long term (current) use of anticoagulants; E11.9 Type 2 diabetes mellitus without complications; J44.9 Chronic obstructive pulmonary disease, unspecified; E78.5 Hyperlipidemia, unspecified; N40.0 Benign prostatic hyperplasia without lower urinary tract symptoms; R91.8 Other nonspecific abnormal finding of lung field; I25.10 Atherosclerotic heart disease of native coronary artery without angina pectoris; E66.01 Morbid (severe) obesity due to excess calories; G47.33 Obstructive sleep apnea (adult) (pediatric); Z90.81 Acquired absence of spleen; G89.29 Other chronic pain; M54.50 Low back pain, unspecified; I77.810 Thoracic aortic ectasia
CPT/HCPCS: 36415; 71275; 80053; 94640; 83735; 83880; 84484; 85025; 85730; 93005; 93010; 93306; 99223; 99239; 99291; J1941; J3490

== ENCOUNTER → 2023-11-24 09:32 | Outpatient (BNVA) | payer MEDICARE, SELFPAY | PROVIDERS: PCP Neuromusculoskeletal Medicine & OMM; Referring Provider Neuromusculoskeletal Medicine & OMM; Visit Provider Student in an Organized Health Care Education/Training Program | DX: J44.9 Chronic obstructive pulmonary disease, unspecified (principal); R91.8 Other nonspecific abnormal finding of lung field; Z87.891 Personal history of nicotine dependence | CPT/HCPCS: 99205 ==

== ENCOUNTER 2025-01-23 02:46 | Outpatient (CLI) | payer MEDICARE, SELFPAY ==
--- NOTE | 2025-01-23 09:06 | ST.MBS ---
Date of Service Date of service: 01/23/25 Time of Service: 09:00 Modified Barium Swallow Study Findings: Video fluoroscopic Swallowing Evaluation (VFSE) / Modified Barium Swallow Study (MBSS) Speech Language Pathology Report Patient referred for VFSE/MBSS from Veronika Chavarria APRN from ENT secondary to dysphagia complaints. HPI & Patient report of function: Patient is a 74 year old male presenting with intermittent globus sensation and dysphagia to pills and solids which has been ongoing for approximately 5 months, since his last CVA. 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 Dipesh describes it feels 'like a gland on my right side moves down and sticks in the right side of my throat'. He notes this globus sensation is not usually present upon waking but will come and go throughout the day. He does not necessarily relate it to eating/certain foods. He notes it can be uncomfortable to swallow. He takes his pills in applesauce and sometimes the larger ones still become stuck. Rice can also get stuck. No issues with softer foods or liquids. No recent pneumonias. Patient has been intentionally losing weight- 125lbs over the past 1-2 years. He has done this by reducing carbs and has not had surgery or used weight loss medication. Feels appetite and endurance for meals is good. IMPRESSIONS: Dipesh presents with at least mild pharyngeal phase dysphagia characterized by delayed swallow onset resulting in consistent penetration with both thin and mildly thick liquid (not improved/possibly worsened with trials of chin tuck). Penetration is considered consistently deep but remains above the vocal cords and is mostly ejected, with trace coating intermittently remaining in the laryngeal vestibule. With regular solids (fig marrufo) there is mild pharyngeal retention in the vallecular and pyriforms, though this clears with subsequent sip of thin. Of notice, esophageal sweep was completed and significant for reflux, mid esophageal stasis, and tertiary contractions in lower esophagus. Anticipate patient's globus may be transferred sensation. Consider further GI workup/management. Of notice, due to equipment malfunction images could not be saved in TERRA and were reviewed directly in PACS RECOMMENDATIONS: Diet Texture Recommendation:? IDDSI LEVEL SOLIDS 7-Regular Solids- Favor moist, soft, cut up foods LIQUIDS 0-Thin Liquids MEDICATIONS Whole with applesauce (Pt preference). If this is difficult, discuss crushing/cutting with pharmacist or MD. Do not alter medications (e.g., cut)? without advice from your MD or pharmacist. Risk Management Strategies:? Behavioral reflux precautions, including upright position during + 90 mins after meals. Small bites, approx [id number] Very small sips, approx 5mL / teaspoon Multiple swallows per bolus to encourage clearance of pharyngeal stasis/residue Control risk factors for aspiration pneumonia via (a) thorough oral hygiene & (b) maintaining physical mobility as tolerated PLAN: Evaluation only. Education provided to patient re: recommendations and film reviewed in study. OBJECTIVE Videofluoroscopic Swallow Evaluation (VFSE/MBSS) was conducted in the lateral and [id number] projection by Speech-Language Pathologist, in collaboration with Radiologist, to evaluate oropharyngeal swallow function. Anatomic view under fluoroscopy: WFL PO Barium Contrast Trials Oral barium water-soluble contrast was administered as follows: IDDSI Level 0 Varibar thin liquid (40% w/v) IDDSI Level 2 Varibar nectar thick/mildly thick liquid (40% w/v) IDDSI Level 4 Varibar pudding/pureed/extremely thick (40% w/v) IDDSI Level 7 Regular Solid: 1/2 morales cracker coated in 3 mL Varibar pudding MBSImP Component Scores: COMPONENT Scale SCORE 1 Lip closure (0-4) 0 Resulted in no labial escape 2 Hold Position (0-3) 0 Maintained a cohesive bolus between tongue to palatal seal 3 Bolus Preparation (0-4) 0 Resulted in timely and efficient chewing and mashing 4 Bolus Transport (0-4) 0 Was with brisk tongue motion 5 Oral Residue (0-4) 0 Was not observed. There was complete oral clearance 6 Swallow Initiation (0-4) 3 Occurred when the bolus head was in the pyriform sinuses 7 Soft Palate Elevation (0-4) 0 Resulted in no bolus between soft palate and the pharyngeal wall 8 Laryngeal Elevation (0-3) 0 Demonstrated complete superior movement of thyroid cartilage with complete approximation of arytenoids to epiglottic petiole 9 Anterior Hyoid Motion (0-2) 1 Demonstrated partial anterior movement 10 Epiglottic Movement (0-2) 0 Resulted in complete inversion 11 Laryngeal Closure (0-2) 1 Was incomplete with narrow a column of air/contrast in laryngeal vestibule 12 Pharyngeal Stripping Wave (0-2) 1 Was present, but diminished 13 Pharyngeal Contraction (0-3) NA 14 PES Opening (0-3) 1 Demonstrated partial distension/partial duration, with partial obstruction of flow 15 Tongue Base Retraction (0-4) 2 Allowed a narrow column of contrast or air between the retracted tongue base and the posterior pharyngeal wall 16 Pharyngeal Residue (0-4) 2 Was a collection of residue within or on pharyngeal structures 17 Esophageal Clearance (0-4) 2 Resulted in esophageal retention with retrograde flow below the pharyngoesophageal segment Penetration-Aspiration Scale: COMPONENT Scale SCORE 1 Thin liquid (1-8) 3 Contrast entered the airway, remained above the vocal folds, and not ejected from the airway. (Trace coating remains in laryngeal vestibule, eventually cleared) 2 [place] thick (1-8) 2 Contrast entered the airway, remained above the vocal folds, and was ejected from the airway. 3 Honey thick (1-8) NA 4 Pudding thick (1-8) 1 Contrast did not enter the airway 5 Cookie (1-8) 1 Contrast did not enter the airway Trialed Compensatory Strategies & Outcome: Maneuvers Successful (+) Unsuccessful (-) Postures Successful (+) Unsuccessful (-) 3 second Preparatory Set? ? Chin Tuck Posture? ?-- worsened penetration Cough? ? Posterior Head tilt? Reflexive? Cued? Throat Clear? ? Head Tilt to? Reflexive? Left? Cued? Right? ? Saliva swallow? ? Head Turn/Rotate to? ? Supraglottic Swallow? Left? ? Super-supraglottic Swallow? Right? ? Bolus Modifications Successful (+) Unsuccessful (-) Delivery/Alternating Consistencies ? Follow with Liquid Wash + cleared residue ? Follow with Solid Bolus? Delivery/Via Straw? ? Reduced Volume? ? Reduced Rate of Intake? ? Increased Viscosity? ? Other:?? ? Thank you for allowing us to take part in this patient's care. Please feel free to contact the [facility] Speech Language Pathology Department with any questions/concerns.
[2025-01-23] MEDS: Barium Sulfate 81% w/w for Oral Suspension 148 GM BTL PO (09:55)
--- NOTE | 2025-01-23 09:57 | DI.RAD_ITS ---
Exam(s) RF MODIFIED SPEECH BA SWALLOW EXAM: RF MODIFIED SPEECH BA SWALLOW CLINICAL HISTORY: Dysphagia with solids,R13.10 TECHNIQUE: Modified barium swallow was performed in conjunction with speech pathology. CONTRAST MATERIAL: Multiple consistencies of oral barium contrast were administered. COMPARISON: No exams were available for comparison FINDINGS: Tertiary contractions and intra esophageal reflux were noted in the mid to distal esophagus. Laryngeal penetration was observed with thin and thickened liquids. Penetration was not observed on more solid consistencies. There is no evidence of aspiration with any consistency. Speech pathology report to follow. IMPRESSION: Laryngeal penetration with thin and thickened liquids. RADIATION DOSE DELIVERED: hardeep Valdivia=14 mGy
[2025-01-23] MEDS: Barium Sulfate Oral Paste 40% W/V 230 ML TUBE PO (10:02)
[2025-01-23] MEDS: Barium Sulfate 40% W/V 240 ML BTL PO (10:03)
== END 2025-01-23 03:06 ==
LOC: DI 02:46
PROVIDERS: PCP Specialist/Technologist Athletic Trainer; Visit Provider Registered Nurse Maternal Newborn
DX: R13.10 Dysphagia, unspecified (principal); J38.7 Other diseases of larynx
CPT/HCPCS: 92526; 74221